=== PATIENT | male | born 1950 | race Caucasian/White ===

== ENCOUNTER 2017-11-14 08:14 | Day surgery (SDC) | payer MEDICARE, BC ==
[2017-11-06 10:24] LABS: BASOPHILS % (AUTO) 0.6 % (0-1); EOSINOPHILS # (AUTO) 0.1 X10'3 (0-0.9); EOSINOPHILS % (AUTO) 2.6 % (0-6); MEAN CORPUSCULAR HEMOGLOBIN 30.5 PG (27.0-31.0); MEAN CORPUSCULAR VOLUME 89.7 FL (78-98); MEAN PLATELET VOLUME 11.1 FL (7.4-10.4); MONOCYTES # (AUTO) 0.4 X10'3 (0-0.9); MONOCYTES % (AUTO) 7.2 % (2-12); NEUTROPHILS # (AUTO) 3.6 X10'3 (1.8-7.7); NEUTROPHILS % (AUTO) 70.6 % (42-75); PRE OP HEMATOCRIT 42.8 % (42.0-52.0); PRE OP HEMOGLOBIN 14.6 g/dL (14.0-17.9); PRE OP PLATELET COUNT 141 X10'3 (140-440); RED BLOOD COUNT 4.77 X10'6 (4.70-6.10); RED CELL DISTRIBUTION WIDTH 13.4 % (11.5-14.5)
[2017-11-06 10:45] LABS: ALBUMIN 3.7 G/DL (3.4-5.0); ALBUMIN/GLOBULIN RATIO 1.2 (1.1-1.5); ALKALINE PHOSPHATASE 84 IU/L (46-116); BLOOD UREA NITROGEN 20 MG/DL (7-18); BUN/CREATININE RATIO 20.4 (5.4-32.0); CALCIUM 9.4 MG/DL (8.5-10.1); CHLORIDE 106 MMOL/L (99-107); CREATININE 0.98 MG/DL (0.60-1.10); PRE OP ALT 64 U/L (30-65); PRE OP ANION GAP 6 (8-16); PRE OP AST 37 U/L (10-37); PRE OP BILIRUB, TOTAL 0.5 MG/DL (0.0-1.0); PRE OP GLUCOSE 94 MG/DL (70-104); PRE OP POTASSIUM 4.2 MMOL/L (3.4-5.1); PRE OP SODIUM 141 MMOL/L (135-145); TOTAL CARBON DIOXIDE 29.4 MMOL/L (24-32); TOTAL PROTEIN 6.7 G/DL (6.4-8.2); eGFR 76 ML/MIN
[2017-11-06 11:18] LABS: LARGE PLATELETS FEW; PLATELET ESTIMATE NORMAL
[2017-11-14] VITALS (10 sets, daily range): BP systolic 133–152; BP diastolic 68–85
[~2017-11-14] VITALS: Ht 180.3 cm; Wt 95.1 kg
[~2017-11-14 08:14] MED LIST: BUPIVAcaine/PF 2.5mg/ml (0.25%) 10ml vial ONE; Cefazolin 2GM/50ML dext iso,osmotic IVPB IV ONE; HYDR-565 PO; TRAZ150T78 PO; famotidine 20mg tablet PO ONE; ringers solution, lacted 1,000 ML IV SCH
[2017-11-14] MEDS ORDERED: LIDOcaine 1% (10mg/ml) 2ml vial ONE (08:58)
[2017-11-14] MEDS ORDERED: LIDOcaine 0.5% (5mg/ml) 50ml vial ONE ×2 (10:20→11:06)
[2017-11-14] MEDS ORDERED: meperidine/PF 25mg/ml syringe IV PRN ×3 (10:45)
[2017-11-14] MEDS ORDERED: morphine 4 MG/ML inj SYRINge IV PRN (10:45)
[2017-11-14] MEDS ORDERED: proCHLORperazine 10 MG/2 ml inj IV PRN (10:45)
[2017-11-14] MEDS ORDERED: ringers solution, lacted 1,000 ML IV SCH (10:45)
[2017-11-14] MEDS ORDERED: ondansetron/PF 4mg/2ml inj IV PRN (10:45)
[2017-11-14] MEDS ORDERED: MIDAZolam 5mg/5ml vial ONE (11:08)
[2017-11-14] MEDS ORDERED: fentaNYL/PF 50MCG/1 ML 2ML syringe ONE (11:08)
[2017-11-14] MEDS: morphine 4 MG/ML inj SYRINge IV PRN ×3 (12:20→12:44)
== END 2017-11-14 13:15 | disposition home or self-care (01) ==
LOC: PAS 08:14
PROVIDERS: ATTEND Orthopaedic Surgery Hand Surgery
DX: M18.12 Unilateral primary osteoarthritis of first carpometacarpal joint, left hand (principal); I10 Essential (primary) hypertension; Z72.89 Other problems related to lifestyle; Z96.653 Presence of artificial knee joint, bilateral; Z79.891 Long term (current) use of opiate analgesic; Z88.1 Allergy status to other antibiotic agents; Z86.711 Personal history of pulmonary embolism; Z90.49 Acquired absence of other specified parts of digestive tract; Z98.890 Other specified postprocedural states; Z79.899 Other long term (current) drug therapy
CPT/HCPCS: 25445; 36415; 80053; 85025; 93005; A4615; A6222; A6258; A6449; J0690; J2001; J2175; J2250; J2270; J3010; J3490; J7120; L8630; A7000

== ENCOUNTER 2018-07-16 09:32 | Day surgery (SDC) | payer MEDICARE, BC ==
[2018-07-15 15:39] LABS: BASOPHILS # (AUTO) 0.1 X10'3 (0-0.2); BASOPHILS % (AUTO) 1.1 % (0-1); EOSINOPHILS # (AUTO) 0.2 X10'3 (0-0.9); EOSINOPHILS % (AUTO) 3.3 % (0-6); HEMATOCRIT 42.4 % (42.0-52.0); HEMOGLOBIN 14.3 g/dl (14.0-17.9); LYMPHOCYTES # (AUTO) 1.2 X10'3 (1.1-4.8); LYMPHOCYTES % (AUTO) 21.3 % (21-51); MEAN CORPUSCULAR HEMOGLOBIN 30.2 PG (27.0-31.0); MEAN CORPUSCULAR HGB CONC 33.8 g/dL (33.0-36.5); MEAN CORPUSCULAR VOLUME 89.3 FL (78-98); MEAN PLATELET VOLUME 11.4 FL (7.4-10.4); MONOCYTES # (AUTO) 0.5 X10'3 (0-0.9); NEUTROPHILS # (AUTO) 3.8 X10'3 (1.8-7.7); NEUTROPHILS % (AUTO) 66.3 % (42-75); PLATELET COUNT 139 X10'3 (140-440); RED BLOOD COUNT 4.74 X10'6 (4.70-6.10); RED CELL DISTRIBUTION WIDTH 13.6 % (11.5-14.5); WHITE BLOOD COUNT 5.8 X10'3 (4.5-11.0)
[2018-07-15 15:44] LABS: ALBUMIN 3.7 G/DL (3.4-5.0); ANION GAP 10 (8-16); BLOOD UREA NITROGEN 25 MG/DL (7-18); BUN/CREATININE RATIO 28.7 (5.4-32.0); CALCIUM 9.1 MG/DL (8.5-10.1); CHLORIDE 107 MMOL/L (99-107); CREATININE 0.87 MG/DL (0.60-1.10); GLUCOSE 113 MG/DL (70-104); MAGNESIUM 1.9 MG/DL (1.5-2.4); POTASSIUM 3.9 MMOL/L (3.5-5.1); SODIUM 142 MMOL/L (135-145); TOTAL CARBON DIOXIDE 25.3 MMOL/L (24-32); eGFR 87 ML/MIN
[2018-07-15 15:46] LABS: PARTIAL THROMBOPLASTIN TIME 27 SECONDS (22-32)
[~2018-07-16] VITALS: Ht 180.3 cm; Wt 103.7 kg
[2018-07-16] VITALS (8 sets, daily range): BP systolic 133–167; BP diastolic 64–95
[~2018-07-16 09:32] MED LIST changes: -BUPIVAcaine/PF 2.5mg/ml (0.25%) 10ml vial ONE; -Cefazolin 2GM/50ML dext iso,osmotic IVPB IV ONE; +HYDR-4353 PO; -HYDR-565 PO; -famotidine 20mg tablet PO ONE; -ringers solution, lacted 1,000 ML IV SCH
[2018-07-16] MEDS ORDERED: normal saline 1000ml 1,000 ML IV SCH (10:00)
[2018-07-16] MEDS ORDERED: cefazolin/dext.iso 2gm/100ml 100 ML IV ONE (10:05)
[2018-07-16] MEDS ORDERED: TRAZ-219 PO (10:22)
[2018-07-16] MEDS ORDERED: IBUP-2264 PO (10:22)
[2018-07-16] MEDS ORDERED: TADA20TA PO (10:22)
[2018-07-16] MEDS ORDERED: fentaNYL/PF 50MCG/1 ML 2ML syringe ONE ×2 (11:51→13:20)
[2018-07-16] MEDS ORDERED: lidocaine 1%/epinephrine 1:100,000 injection 50ml vial ONE (11:51)
[2018-07-16] MEDS ORDERED: midazolam 2 mg/2 ml injection ONE ×3 (11:51→13:36)
[2018-07-16] MEDS ORDERED: ceFAZolin 1000mg inj ONE (12:45)
[2018-07-16] MEDS ORDERED: iohexol 350 MG/ML 50ML vial IV ONE (12:58)
[2018-07-16] MEDS ORDERED: HYDROcodone/acetaminophen 5mg/325mg tablet PO PRN (14:50)
[2018-07-16] MEDS ORDERED: LORazepam 1 MG tablet PO PRN (14:50)
[2018-07-16] MEDS ORDERED: HYDROcodone/acetaminophen 10/325mg tab PO PRN (14:50)
== END 2018-07-16 17:45 | disposition home or self-care (01) ==
LOC: SSTAY O 09:32
PROVIDERS: ATTEND Internal Medicine Cardiovascular Disease
DX: I49.5 Sick sinus syndrome (principal); I47.1 Supraventricular tachycardia; I10 Essential (primary) hypertension; E78.5 Hyperlipidemia, unspecified; Z98.890 Other specified postprocedural states; G47.00 Insomnia, unspecified; G89.29 Other chronic pain; K44.9 Diaphragmatic hernia without obstruction or gangrene; Z96.652 Presence of left artificial knee joint; Z88.8 Allergy status to other drugs, medicaments and biological substances; Z79.899 Other long term (current) drug therapy; Z86.711 Personal history of pulmonary embolism; F17.210 Nicotine dependence, cigarettes, uncomplicated; F12.90 Cannabis use, unspecified, uncomplicated
CPT/HCPCS: 33208; 36415; 71046; 80048; 83735; 85025; 85610; 85730; 93005; 99152; 99153; C1785; C1898; J0690; J2250; J3010; J3490; J7030; Q9967; A4565; A4620; A6449; C1894

== ENCOUNTER 2021-04-03 12:02 | Emergency (ER) | payer MEDICARE, BC ==
[~2021-04-03] VITALS: Ht 180.3 cm; Wt 100.0 kg
[~2021-04-03 12:02] MED LIST changes: -HYDR-4353 PO; +IBUP-2697 PO; +TADA20TA PO; +TRAZ-256 PO; -TRAZ150T78 PO
[2021-04-03 13:12] VITALS: BP 112/82
== END 2021-04-03 14:39 | disposition left against medical advice (07) ==
LOC: ER 12:03
DX: R06.02 Shortness of breath (principal); Z53.21 Procedure and treatment not carried out due to patient leaving prior to being seen by health care provider

== ENCOUNTER 2021-08-15 07:10 | Day surgery (SDC) | payer MEDICARE, BC ==
[2021-08-14 10:37] LABS: BASOPHILS # (AUTO) 0.1 X10'3 (0-0.2); EOSINOPHILS # (AUTO) 0.2 X10'3 (0-0.9); HEMOGLOBIN 16.1 g/dl (14.0-17.9); LYMPHOCYTES # (AUTO) 1.1 X10'3 (1.1-4.8); LYMPHOCYTES % (AUTO) 14.4 % (21-51); MEAN CORPUSCULAR VOLUME 85.6 FL (78-98); NEUTROPHILS # (AUTO) 5.7 X10'3 (1.8-7.7); RED CELL DISTRIBUTION WIDTH 16.3 % (11.5-14.5)
[2021-08-14 10:38] LABS: BASOPHILS % (AUTO) 0.8 % (0-1); HEMATOCRIT 48.7 % (42.0-52.0); MEAN CORPUSCULAR HEMOGLOBIN 28.4 PG (27.0-31.0); MEAN CORPUSCULAR HGB CONC 33.1 g/dL (33.0-36.5); MEAN PLATELET VOLUME 10.5 FL (7.4-10.4); MONOCYTES # (AUTO) 0.6 X10'3 (0-0.9); NEUTROPHILS % (AUTO) 74.8 % (42-75); PLATELET COUNT 173 X10'3 (140-440); RED BLOOD COUNT 5.69 X10'6 (4.70-6.10); WHITE BLOOD COUNT 7.6 X10'3 (4.5-11.0)
[2021-08-14 10:46] LABS: ALBUMIN 3.6 G/DL (3.4-5.0); ANION GAP 7 (8-16); BLOOD UREA NITROGEN 17 MG/DL (7-18); BUN/CREATININE RATIO 11.6 (5.4-32.0); CALCIUM 9.1 MG/DL (8.5-10.1); CHLORIDE 103 MMOL/L (99-107); CREATININE 1.46 MG/DL (0.60-1.10); GLUCOSE 96 MG/DL (70-104); POTASSIUM 4.2 MMOL/L (3.5-5.1); SODIUM 139 MMOL/L (135-145); TOTAL CARBON DIOXIDE 29.4 MMOL/L (24-32); eGFR 48 ML/MIN
[2021-08-14 11:02] LABS: ANISOCYTOSIS 1+; ELLIPTOCYTES FEW; LARGE PLATELETS FEW; PLATELET ESTIMATE NORMAL
[~2021-08-15] VITALS: Ht 180.3 cm; Wt 105.1 kg
[2021-08-15 07:45] VITALS: BP 128/71
[2021-08-15] MEDS ORDERED: normal saline 1000ml 1,000 ML IV SCH (07:45)
[2021-08-15] MEDS ORDERED: morphine 10mg/ml inj. IV ONE (07:45)
[2021-08-15] MEDS ORDERED: diphenhydrAMINE 25mg capsule PO ONE (07:45)
[2021-08-15] MEDS ORDERED: amiodarone 150mg/dext, iso-os 100 ML IV ONE (07:45)
[2021-08-15] MEDS ORDERED: LORazepam 0.5 MG tablet PO ONE (07:45)
[2021-08-15] MEDS ORDERED: atropine 0.1mg/ml 10ml syringe IV ONE (07:45)
[2021-08-15] MEDS ORDERED: MIDAZolam 1mg/ml 10ml vial IV ONE (07:45)
[2021-08-15] MEDS ORDERED: FURO40TA4 PO (07:54)
[2021-08-15] MEDS ORDERED: AMIO200T61 PO (07:54)
[2021-08-15] MEDS ORDERED: ALBUTEROL INH (07:54)
[2021-08-15] MEDS ORDERED: SILD100T70 PO (07:54)
[2021-08-15] MEDS ORDERED: APIX5TAB3 PO (07:54)
[2021-08-15] MEDS ORDERED: DILT-36 PO (07:54)
--- NOTE | 2021-08-15 08:20 | NUR ---
Dr. Amor at bedside to look at EKG. No cardioversion to be performed. Patient a-paced. Dr. Amor ordered for [employer] pacemaker rep to come and increase pt's pacemaker HR to 80 bpm
--- NOTE | 2021-08-15 09:00 | NUR ---
Dallin montanez [employer] at bedside to increase pacemaker HR to 80 BPM
== END 2021-08-15 09:10 | disposition home or self-care (01) ==
LOC: SSTAY O 07:10
PROVIDERS: ATTEND Internal Medicine Cardiovascular Disease
DX: I48.0 Paroxysmal atrial fibrillation (principal); Z53.8 Procedure and treatment not carried out for other reasons; I47.1 Supraventricular tachycardia; G47.00 Insomnia, unspecified; G89.29 Other chronic pain; I10 Essential (primary) hypertension; E78.5 Hyperlipidemia, unspecified; Z86.16 Personal history of COVID-19; Z79.899 Other long term (current) drug therapy; Z87.891 Personal history of nicotine dependence; Z86.711 Personal history of pulmonary embolism; Z88.1 Allergy status to other antibiotic agents
CPT/HCPCS: 36415; 80048; 85008; 85025; 85610; 93005; A4620; J7030

== ENCOUNTER 2022-04-23 11:23 | Emergency (ER) | payer MEDICARE, BC ==
[~2022-04-23] VITALS: Ht 182.9 cm; Wt 105.0 kg
[~2022-04-23 11:23] MED LIST changes: +ALBUTEROL INH; +AMIO200T61 PO; +APIX5TAB3 PO; +DILT-36 PO; +FURO40TA4 PO; -IBUP-2697 PO; +SILD100T70 PO; -TADA20TA PO
[2022-04-23 11:26] VITALS: BP 160/103
--- NOTE | 2022-04-23 11:49 | NUR ---
DISCHARGED BY PROVIDER [facility]
== END 2022-04-23 12:10 | disposition home or self-care (01) ==
LOC: ER 11:23
DX: Q89.8 Other specified congenital malformations (principal); I10 Essential (primary) hypertension; E78.00 Pure hypercholesterolemia, unspecified; Z88.1 Allergy status to other antibiotic agents; Z79.899 Other long term (current) drug therapy; Z79.1 Long term (current) use of non-steroidal anti-inflammatories (NSAID); Z79.2 Long term (current) use of antibiotics
CPT/HCPCS: 72170; 99283